=== PATIENT | male | born 1955 | race Two or more races ===

== ENCOUNTER 2024-08-16 18:57 | Emergency (ER) | payer OTHER ==
[~2024-08-16] VITALS: Ht 185.4 cm; Wt 89.0 kg
[2024-08-16 19:10] VITALS: PULSE 106; RESP 16; TEMP 97; O2SAT 98
[2024-08-16 19:11] VITALS: BP 193/88
[2024-08-16] MEDS ORDERED: cloNIDine HCL 0.1 MG TAB PO ONE (19:15)
--- NOTE | 2024-08-16 19:15 | ED.PDOC ---
History of Present Illness HPI Comments 68-year-old male who came to ER due to blurring of vision. Patient does have history of hypertension but has poor compliance to his medication. States he has been having blurring of vision for the past few months, left worse than the right. Denies any headaches, dizziness, or chest pains. Upon arrival blood pressure was 188/97 mm Hg. 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 Chief Complaint: Eye Problem Time Seen by MD: 19:14 Primary Care Provider: UNKNOWN Reviewed Notes: Nurses Notes Allergies: Coded Allergies: Erythromycin (Verified Allergy, Severe, 08/16/24) Information Source: Patient Mode of Arrival: Ambulatory Severity: Moderate Timing: Months Duration: Intermittent Prehospital treatment: None Medication Refill: For: Other Past Medical History PAST MEDICAL HISTORY: HTN Surgical History: Denies all surgeries Family History Family History: Reviewed,noncontributory to illness Social History Smoker: Non-Smoker Alcohol: Denies ETOH Use Drugs: Denies Drug Use Lives In: Home Constitutional: denies: chills, diaphoresis, fatigue, fever, malaise, sweats, weakness, others EENTM: reports: blurred vision; denies: double vision, ear bleeding, ear discharge, ear drainage, ear pain, ear ringing, eye pain, eye redness, hearing loss, mouth pain, mouth swelling, nasal discharge, nose bleeding, nose congestion, nose pain, photophobia, tearing, throat pain, throat swelling, voice changes, others Respiratory: denies: cough, hemoptysis, orthopnea, SOB at rest, shortness of breath, SOB with excertion, stridor, wheezing, others Cardiovascular: denies: chest pain, dizzy spells, diaphoresis, Dyspnea on exertion, edema, irregular heart beat, left arm pain, lightheadedness, palpitations, PND, syncope, others Gastrointestinal: denies: abdomen distended, abdominal pain, blood streaked bowels, constipated, diarrhea, dysphagia, difficulty swallowing, hematemesis, melena, nausea, poor appetite, poor fluid intake, rectal bleeding, rectal pain, vomiting, others Genitourinary: denies: burning, dysuria, flank pain, frequency, hematuria, incontinence, penile discharge, penile sore, pain, testicle pain, testicle swelling, urgency, others Neurological: denies: dizziness, fainting, headache, left sided numbness, left sided weakness, numbness, paresthesia, pre-existing deficit, right sided numbness, right sided weakness, seizure, speech problems, tingling, tremors, weakness, others Musculoskeletal: denies: back pain, gout, joint pain, joint swelling, muscle pain, muscle stiffness, neck pain, others Integumetry: denies: bruises, change in color, change in hair/nails, dryness, laceration, lesions, lumps, rash, wounds, others Allergic/Immunocompromised: denies: Difficulty Healing, Frequent Infections, Hi ves, Itching, others Hematologic/Lymphatic: denies: anemia, blood clots, easy bleeding, easy bruising, swollen glands, others Endocrine: denies: excessive hunger, excessive sweating, excessive thirst, excessive urination, flushing, intolerance to cold, intolerance to heat, unexplained weight gain, unexplained weight loss, others Psychiatric: denies: anxiety, bipolar disorder, depression, hopeless, panic disorder, schizophrenia, sleepless, suicidal, others Physical Exam General Appearance: No Apparent Distress, Normal HEENT: Normal ENT Inspection, Pharynx Normal, TMs Normal Neck: Full Range of Motion, Non-Tender, Normal, Normal Inspection Respiratory: Chest Non-Tender, Lungs Clear, No Accessory Muscle Use, No Respiratory Distress, Normal Breath Sounds Cardiovascular: No Edema, No JVD, No Murmur, No Gallop, Normal Peripheral P ulses, Regular Rate/Rhythm Breast Exam: Deferred Gastrointestinal: No Organomegaly, Non Tender, No Pulsatile Mass, Normal Bowel Sounds, Soft Genitalia: Deferred Pelvic: Deferred Rectal: Deferred Extremities: No calf tenderness, Normal capillary refill, Normal inspection, Normal range of motion, Non-tender, No pedal edema Musculoskeletal : Apperance: Normal Neurologic: Alert, bonsai tender II-XII nml as Tested, No Motor Deficits, Normal Affect, Normal Mood, No Sensory Deficits Cerebellar Function: Normal Reflexes: Normal Skin: Dry, Normal Color, Warm Lymphatic: No Adenopathy Was a procedure done? Was a procedure done?: No Differential Dx Considerations may include: Anemia, electrolyte imbalance, hypertensive urgency, medication noncompliance, blurred vision X-Ray, Labs, Meds, VS Vital Signs Date Time Temp Pulse Resp B/P (MAP) Pulse Ox O2 Delivery O2 Flow Rate FiO2 08/16/24 19:11 193/88 (123) 08/16/24 19:10 97.0 106 16 188/97 (127) 98 97.0 08/16/24 19:06 97.0 106 16 188/97 (127) 98 The patient was positive for syphilis and HIV. He was referred by his primary care physician to Infectious Disease but has been noncompliant. Clonidine was ordered for his blood pressure however the patient eloped. Time of 1ST Reevaluation: 19:11 Reevaluation 1ST: Unchanged Patient Education/Counseling: Diagnosis, Treatment Family Education/Counseling: No Family Present Departure 1 Departure Time of Disposition: 23:12 Impression: Primary Impression: Hypertension Qualified Codes: I10 - Essential (primary) hypertension Additional Impressions: HIV (human immunodeficiency virus infection) Qualified Codes: Z21 - Asymptomatic human immunodeficiency virus [hiv] infection status Syphilis Disposition: LEFT AWOL/ELOPED Condition: Guarded Additional Instructions: The patient wants to sign out against medical advice. Patient was screened with an assessment of cognitive status and the testing revealed no signs of cognitive impairment. The patient is alert and oriented to person, place, and time. Patient gives appropriate answers and speaks coher ently. The Glascow Coma Score is 15. A repeat gross neurologic exam shows no abnormalities. The patient was not in pain or distracted during our discussion. The patient exhibited no signs of depression, psychosis or tangential / delusional thinking. Normal thought process. Patient has no auditory or visual hallucinations. Patient has no suicidal or homicidal ideations. Patient is competent to make own decisions. Had in-depth discussion with patient about possible diagnosis. All clinical information and issues discussed with patient. The patient understands the medical condition. We discussed our proposed treatment, alternatives, and risks and benefits of both. Patient aware of recommendations. Had extensive discussion with patient regarding the risks of refusing our recommended treatment and disposition plans which includes but not exclusive to , brain damage, neurologic dysfunction, permanent mental impairment, worsening of symptoms, loss of limb, loss of ability to function, loss of sexual function and loss of current lifestyle and worsening of condition. Despite repeating my recommendations and patient expressing understanding of these risks, patient still wanted to leave. Patient signed out AMA and accepted all risks. Patient offered appropriate clinic follow-ups and prescriptions. Patient instructed to return to our ED or the closest ED if ANY exacerbation of symptoms. I discussed infectious disease with the patient prior to his elopement. We recommended that he follow up with primary care physician and [facility]. Discharged With: Self Critical Care Note Critical Care Time?: No Stability Stability form required: No Heart Score Heart Score: Heart Score Response (Comments) Value History N/A 0 EKG N/A 0 Age N/A 0 Risk Factors N/A 0 Troponin N/A 0 Total 0 I personally scribed for LENORE HOYT MD ([email or web address]) on 08/16/24 at 19:15. Electronically submitted by Anthony Heath ([email or web address]). LENORE HOYT MD Aug 16, 2024 19:15
== END 2024-08-16 23:32 | disposition left against medical advice (07) ==
LOC: ER 19:01
DX: I10 Essential (primary) hypertension (principal); A53.9 Syphilis, unspecified; Z88.1 Allergy status to other antibiotic agents